=== PATIENT | male | born 1965 | race Caucasian/White ===

== ENCOUNTER 2020-12-16 15:13 | Emergency (ER) | payer BC ==
--- NOTE | 2020-12-16 15:49 | EDM.PDOC ---
ED HPI GENERAL MEDICAL PROBLEM - General Chief Complaint: Genitourinary Problem Stated Complaint: PAIN IN SCROTUM Time Seen by Provider: 12/16/20 15:35 Source of Information: Reports: Patient History Limitations: Reports: No Limitations - History of Present Illness INITIAL COMMENTS - FREE TEXT/NARRATIVE: 55-year-old male with a past history of epididymitis presents with 48 hours of right testicular pain, some mild swelling and radiation of pain up into the right pelvis. No dysuria or increased urinary frequency, no fevers or chills. Onset: Gradual Duration: Hour(s): (48 hours) Location: Reports: Other (Right testicle and groin) Worsens with: Reports: Movement Associated Symptoms: Reports: No Other Symptoms - Related Data Allergies Allergy/AdvReac Type Severity Reaction Status Date / Time No Known Allergies Allergy Verified 12/16/20 15:27 Home Meds: Home Meds Eszopiclone [Lunesta] 3 mg PO DAILY 12/16/20 [History] Pramipexole [Mirapex] 0.25 mg PO DAILY 12/16/20 [History] Past Medical History Musculoskeletal History: Reports: Other (See Below) Other Musculoskeletal History: restless legs Neurological History: Reports: Other (See Below) Other Neuro History: insomnia - Infectious Disease History Infectious Disease History: Reports: Chicken Pox - Past Surgical History Musculoskeletal Surgical History: Reports: Other (See Below) Other Musculoskeletal Surgeries/Procedures:: knee surgery Social & Family History - Tobacco Use Tobacco Use Status *Q: Current Every Day Tobacco User Years of Tobacco use: 30 Packs/Tins Daily: 1 - Recreational Drug Use Recreational Drug Use: No ED ROS GENERAL - Review of Systems Review Of Systems: See Below Constitutional: Denies: Fever, Chills Respiratory: Denies: Shortness of Breath Cardiovascular: Denies: Chest Pain GI/Abdominal: Reports: Abdominal Pain (Some mild pain in the extreme right pelvic area radiating from the groin) Skin: Reports: No Symptoms Neurological: Reports: No Symptoms Psychiatric: Reports: No Symptoms ED EXAM, RENAL/ - Physical Exam Exam: See Below Exam Limited By: No Limitations General Appearance: Alert, No Apparent Distress Respiratory/Chest: No Respiratory Distress GI/Abdominal: Normal Bowel Sounds, Soft, Non-Tender (Male) Exam: No Hernia, Scrotum Tenderness (R), Testicular Tenderness (R). No: Suprapubic Fullness Neurological: Alert, Oriented Psychiatric: Normal Affect, Normal Mood Skin Exam: Warm, Dry Course - Vital Signs Last Recorded V/S: Last Vital Signs Temp 98.2 F 12/16/20 15:34 Pulse 77 12/16/20 15:34 Resp 16 12/16/20 15:34 BP 148/92 H 12/16/20 15:34 Pulse Ox 98 12/16/20 15:34 - Re-Assessments/Exams Free Text/Narrative Re-Assessment/Exam: 12/16/20 16:20 Exam is consistent with an epididymitis of the right side. Patient was placed on ciprofloxacin 500 mg twice daily for minimum of 5 days and up to 10 days if needed. He will return if his worsening despite treatment, or if he is not improving satisfactorily after 4 to 5 days. Departure - Departure Time of Disposition: 15:55 Disposition: Home, Self-Care 01 Clinical Impression: Epididymitis, right - Discharge Information Instructions: Epididymitis Referrals: PCP,None [Primary Care Provider] - Forms: ED Department Discharge Care Plan Goals: Take antibiotic twice daily for at least 5 days and up to 10 days if needed. Avoid intercourse until symptoms are gone. Consider rechecking in 3 to 4 days if not improving significantly with antibiotic, and ibuprofen should be helpful. Return sooner if worsening such as increased swelling, fever, or worsening pa in. Sepsis Event Note (ED) - Evaluation Sepsis Screening Result: No Definite Risk - Focused Exam Vital Signs: Vital Signs Temp Pulse Resp BP Pulse Ox 12/16/20 15:34 98.2 F 77 16 148/92 H 98 12/16/20 15:27 98.2 F 77 16 148/92 H 98
== END 2020-12-16 15:56 | disposition home or self-care (01) ==
LOC: JP.ED 15:13
DX: N45.1 Epididymitis (principal); G25.81 Restless legs syndrome; Z79.899 Other long term (current) drug therapy; Z72.0 Tobacco use
CPT/HCPCS: 99283

== ENCOUNTER 2021-04-15 12:40 | Emergency (ER) | payer BC ==
[2021-04-15] MEDS ORDERED: Bacitracin Oint 1 GM U/D Packet TOP ONE (13:10)
--- NOTE | 2021-04-15 13:11 | EDM.PDOC ---
ED HPI GENERAL MEDICAL PROBLEM - General Chief Complaint: Laceration Stated Complaint: POSSIBLE STITCHS IN R FOOT Time Seen by Provider: 04/15/21 13:00 Source of Information: Reports: Patient History Limitations: Reports: No Limitations - History of Present Illness INITIAL COMMENTS - FREE TEXT/NARRATIVE: 56-year-old male kicked a culvert with his foot sustaining a laceration in between the second and third toe on the right foot. No other injury. [facility] repair and they told him "we do not do that here, go to the ER". Onset: Sudden Duration: Hour(s): (1 hour ago) Location: Reports: Lower Extremity, Right - Related Data Allergies Allergy/AdvReac Type Severity Reaction Status Date / Time No Known Allergies Allergy Verified 04/15/21 13:04 Home Meds: Home Meds Eszopiclone [Lunesta] 3 mg PO DAILY 12/16/20 [History] Pramipexole [Mirapex] 0.25 mg PO DAILY 12/16/20 [History] Past Medical History Musculoskeletal History: Reports: Other (See Below) Other Musculoskeletal History: restless legs Neurological History: Reports: Other (See Below) Other Neuro History: insomnia - Infectious Disease History Infectious Disease History: Reports: Chicken Pox - Past Surgical History Musculoskeletal Surgical History: Reports: Other (See Below) Other Musculoskeletal Surgeries/Procedures:: knee surgery Social & Family History - Tobacco Use Tobacco Use Status *Q: Heavy Tobacco User Years of Tobacco use: 30 Packs/Tins Daily: 1 ED ROS GENERAL - Review of Systems Review Of Systems: See Below Constitutional: Denies: Fever, Chills HEENT: Reports: No Symptoms Respiratory: Denies: Shortness of Breath Cardiovascular: Denies: Chest Pain GI/Abdominal: Denies: Nausea, Vomiting Neurological: Reports: No Symptoms ED EXAM, SKIN/RASH Exam: See Below Exam Limited By: No Limitations General Appearance: Alert, No Apparent Distress Head: Atraumatic Respiratory/Chest: No Respiratory Distress, Lungs Clear Cardiovascular: Regular Rate, Rhythm Extremities: Other (Exam is otherwise limited to the right foot. The patient has a 3.5 cm laceration into the webspace of the right foot between the second and third toe.) Neurological: Alert, Oriented Psychiatric: Normal Affect, Normal Mood Course - Vital Signs Last Recorded V/S: Last Vital Signs Temp 98.1 F 04/15/21 13:07 Pulse 70 04/15/21 13:07 Resp 16 04/15/21 13:07 BP 139/93 H 04/15/21 13:07 Pulse Ox 99 04/15/21 13:07 - Orders/Labs/Meds Meds: Medications Discontinued Medications Generic Name Dose Route Start Last Admin Trade Name Marilee PRN Reason Stop Dose Admin Bacitracin 1 dose 04/15/21 13:10 04/15/21 13:14 Bacitracin Oint 1 Gm U/D Packet TOP 04/15/21 13:11 1 dose ONETIME ONE Administration Lidocaine HCl 5 ml 04/15/21 13:10 04/15/21 13:14 Lidocaine 1% 5 Ml Sdv INJECT 04/15/21 13:11 5 ml ONETIME ONE Administration - Re-Assessments/Exams Free Text/Narrative Re-Assessment/Exam: 04/15/21 13:41 The wound was anesthetized with 1% lidocaine, washed thoroughly with saline. There was no foreign body. Five 4-0 Ethilon sutures were used to close the wound. Topical bacitracin was applied as well as a dressing in between the toes and a wraparound dressing over the distal foot that can stay on for the next few hours. Increase activity as tolerated, watch for infection, and sutures can be removed in 8 days. Departure - Departure Time of Disposition: 13:48 Disposition: Home, Self-Care 01 Clinical Impression: Laceration of right foot Qualifiers: Encounter type: initial encounter Qualified Code(s): S91.311A - Laceration without foreign body, right foot, initial encounter - Discharge Information Instructions: Laceration Care, Adult Referrals: PCP,None [Primary Care Provider] - Forms: ED Department Discharge Care Plan Goals: Keep wound covered and clean while healing, and sutures can be removed in 8 days. Recheck sooner if concerns of infection or not healing satisfactorily. Sepsis Event Note (ED) - Evaluation Sepsis Screening Result: No Definite Risk - Focused Exam Vital Signs: Vital Signs Temp Pulse Resp BP Pulse Ox 04/15/21 13:07 98.1 F 70 16 139/93 H 99 04/15/21 12:55 98.1 F 70 16 139/93 H 99
== END 2021-04-15 13:57 | disposition home or self-care (01) ==
LOC: JP.ED 12:40
DX: S91.311A Laceration without foreign body, right foot, initial encounter (principal); Z72.0 Tobacco use; W22.09XA Striking against other stationary object, initial encounter
CPT/HCPCS: 12002; 99282-25